=== PATIENT | female | born 2000 | race Caucasian/White ===

== ENCOUNTER 2021-11-12 00:15 | Emergency (ER) | payer OTHER ==
[~2021-11-12] VITALS: Ht 157.5 cm; Wt 105.7 kg
[2021-11-12] MEDS ORDERED: PROCTOFOAM15 GM TP (00:51)
== END 2021-11-12 01:30 | disposition home or self-care (01) ==
LOC: ER1 00:15
DX: O22.43 Hemorrhoids in pregnancy, third trimester (principal); O10.913 Unspecified pre-existing hypertension complicating pregnancy, third trimester; Z3A.31 31 weeks gestation of pregnancy
CPT/HCPCS: 99283

== ENCOUNTER 2021-12-22 05:22 | Inpatient (IN) | payer OTHER ==
[~2021-12-22] VITALS: Ht 154.9 cm; Wt 106.6 kg
[~2021-12-22 05:22] MED LIST: PROCTOFOAM15 GM TP
[2021-12-22 06:35] LABS: HEMOGLOBIN 11.9 gm/dl (12.3-15.3); RED BLOOD COUNT 4.06 M/UL (4.00-5.10); WHITE BLOOD COUNT 11.3 K/UL (4.5-11.0)
[2021-12-22 07:25] LABS: BUN/CREATININE RATIO 11 (0-10)
[2021-12-22] MEDS ORDERED: PRENATAL VITAM1 EAC5 PO (07:35)
[2021-12-22] MEDS ORDERED: PRILOSEC OTC20 MG PO (07:35)
[2021-12-22] MEDS ORDERED: TRANDATE 100 M100 MG PO (07:36)
[2021-12-22] MEDS ORDERED: COLACE 100MG C100 MG PO (08:18)
[2021-12-22] MEDS ORDERED: IBUPROFEN600 MG PO (08:18)
[2021-12-22] MEDS ORDERED: HYDROCODON-ACE1 EAC6 PO (08:18)
[2021-12-23 04:42] LABS: HEMOGLOBIN 10.2 gm/dl (12.3-15.3)
[2021-12-24] MEDS ORDERED: LABETALOL HCL200 MG PO (09:53)
== END 2021-12-24 17:01 | disposition home or self-care (01) | DRG 788 ==
LOC: OB 05:22
PROVIDERS: ADMIT Obstetrics & Gynecology
PROC: 4A1HXCZ Monitoring of Products of Conception, Cardiac Rate, External Approach (ICD-10-PCS; 2021-12-22)
PROC: 3E0234Z Introduction of Serum, Toxoid and Vaccine into Muscle, Percutaneous Approach (ICD-10-PCS; 2021-12-22)
PROC: 10D00Z1 Extraction of Products of Conception, Low, Open Approach (ICD-10-PCS; principal; 2021-12-22 08:45)
DX: O13.4 Gestational [pregnancy-induced] hypertension without significant proteinuria, complicating childbirth (principal); Z3A.37 37 weeks gestation of pregnancy; Z37.0 Single live birth; Z20.822 Contact with and (suspected) exposure to COVID-19; Z28.310 Unvaccinated for COVID-19; Z82.49 Family history of ischemic heart disease and other diseases of the circulatory system; Z80.1 Family history of malignant neoplasm of trachea, bronchus and lung; Z98.890 Other specified postprocedural states; Z23 Encounter for immunization
CPT/HCPCS: 36415; 80053; 81001; 82800; 85014; 85018; 85025; 90715; C9113; J0690; J1650; J1885; J2274; J2370; J2405; J2550; J2590; J3010

== ENCOUNTER 2022-01-28 12:57 | Emergency (ER) | payer OTHER ==
[~2022-01-28 12:57] MED LIST changes: +COLACE 100MG C100 MG PO; +HYDROCODON-ACE1 EAC6 PO; +IBUPROFEN600 MG PO; +LABETALOL HCL200 MG PO; +PRENATAL VITAM1 EAC5 PO; +PRILOSEC OTC20 MG PO; +TRANDATE 100 M100 MG PO
[2022-01-28 13:44] LABS: HEMOGLOBIN 12.9 gm/dl (12.3-15.3); RED BLOOD COUNT 4.48 M/UL (4.00-5.10); WHITE BLOOD COUNT 14.6 K/UL (4.5-11.0)
[2022-01-28 14:05] LABS: BUN/CREATININE RATIO 15 (0-10)
[2022-01-28] MEDS ORDERED: MACROBID 100 M100 MG PO (15:32)
== END 2022-01-28 15:41 | disposition home or self-care (01) ==
LOC: ER1 12:57
PROVIDERS: Physician Assistant
DX: N39.0 Urinary tract infection, site not specified (principal); I10 Essential (primary) hypertension; F17.290 Nicotine dependence, other tobacco product, uncomplicated
CPT/HCPCS: 80053; 81001; 83690; 84703; 85025; 96374; 99284; J1885; Q9967